=== PATIENT | male | born 1980 | race Two or more races ===

== ENCOUNTER 2023-01-22 23:27 | Emergency (ER) | payer MEDICAID ==
[~2023-01-22] VITALS: Ht 175.3 cm; Wt 100.0 kg
[2023-01-22 23:28] VITALS: BP 164/95
== END 2023-01-23 02:47 | disposition left against medical advice (07) ==
LOC: ER 23:27
DX: M25.562 Pain in left knee (principal); Z53.21 Procedure and treatment not carried out due to patient leaving prior to being seen by health care provider; W01.0XXA Fall on same level from slipping, tripping and stumbling without subsequent striking against object, initial encounter; Y93.89 Activity, other specified; Y92.89 Other specified places as the place of occurrence of the external cause; Y99.8 Other external cause status